=== PATIENT | female | born 1990 | race Caucasian/White ===

== ENCOUNTER 2016-06-02 11:35 | Outpatient (CLI) | payer MEDICAID | END 2016-06-02 12:33 | disposition home or self-care (01) | LOC: LC 11:35 | PROVIDERS: ATTEND Obstetrics & Gynecology | PROC: 4A1HXCZ Monitoring of Products of Conception, Cardiac Rate, External Approach (ICD-10-PCS; principal; 2016-06-02) | DX: Z34.93 Encounter for supervision of normal pregnancy, unspecified, third trimester (principal); Z36 Encounter for antenatal screening of mother; Z3A.37 37 weeks gestation of pregnancy | CPT/HCPCS: 59025 ==

== ENCOUNTER 2016-06-04 12:37 | Outpatient (CLI) | payer MEDICAID ==
--- NOTE | 2016-06-04 13:53 | Non Stress Test Report ---
Non Stress Test Datetime Report Generated by CPN: 06/04/2016 13:53 DEMOGRAPHIC EGA NST: 37.2 EGA NST: 37.0 INDICATION Indication for Study: Ordered by Provider; Other Indication for Study: Ordered by Provider Indication for Study (NST) Other: Repeat NST on subutex Indication for Study (NST) Other: repeat NST 37 weeks Subutex use MONITORING Monitor Explained: Monitor Explained; Test Explained; Patient Verbalized Understanding Monitor Explained: Monitor Explained Time on Monitor: 06/04/2016 12:57 Time on Monitor: 06/02/2016 11:52 Time off Monitor: 06/04/2016 13:40 NST Duration: 43 NST INTERVENTIONS NST Interventions: PO Hydration NST Interventions: PO Hydration; Reposition Patient Physician Notified NST: H. Holland, CNM BABY A: [id number] BABY A Movement : Present Movement : Present Contraction Frequency : 0 FHR Baseline : 135 Accelerations : 15X15 Accelerations : 15X15 Decelerations : None Variability : Moderate 6-25bpm Variability : Moderate 6-25bpm NST Review: Meets Criteria for Reactive NST NST Review: Meets Criteria for Reactive NST NST Review and Verified By : Nichole Casillas RN NST Review and Verified By : Fani Gabriel RN NST Results: Reactive NST REPORT Report Trigger: Send Report
== END 2016-06-04 13:43 | disposition home or self-care (01) ==
LOC: LC 12:37
PROVIDERS: ATTEND Obstetrics & Gynecology
PROC: 4A1HXCZ Monitoring of Products of Conception, Cardiac Rate, External Approach (ICD-10-PCS; principal; 2016-06-04)
DX: Z34.93 Encounter for supervision of normal pregnancy, unspecified, third trimester (principal); Z36 Encounter for antenatal screening of mother; Z3A.37 37 weeks gestation of pregnancy
CPT/HCPCS: 59025

== ENCOUNTER 2016-06-08 16:05 | Outpatient (CLI) | payer MEDICAID ==
[2016-06-08 16:52] LABS: APPEARANCE,URINE CLEAR; BILIRUBIN,URINE NEGATIVE (NEGATIVE); GLUCOSE, URINE NEGATIVE (NEGATIVE); KETONES,URINE NEGATIVE (NEGATIVE); LEUKOCYTE ESTERASE,URINE NEGATIVE (NEGATIVE); NITRITE,URINE NEGATIVE (NEGATIVE); PROTEIN,URINE NEGATIVE (NEGATIVE); URINE SPECIFIC GRAVITY 1.005; UROBILINOGEN,URINE NEGATIVE mg/dL (<2.0)
[2016-06-08 17:09] LABS: URINE BARBITURATES SCREEN NEGATIVE; URINE METHADONE SCREEN NEGATIVE; URINE OPIATES LOW NEGATIVE; URINE PHENCYCLIDINE SCREEN NEGATIVE
[2016-06-08 17:39] LABS: ABSOLUTE LYMPHOCYTES (AUTO) 0.8 10^3/uL (0.5-4.7); ABSOLUTE MONOCYTES (AUTO) 0.2 10^3/uL (0.1-1.4); ABSOLUTE NEUT (AUTO) 12.3 10^3/uL (1.7-8.2); BASOPHILS % (AUTO) 0.3 % (0-2); HEMATOCRIT 37.5 % (36.0-47.0); HEMOGLOBIN 12.9 g/dL (12.0-15.5); HGB HCT DIFFERENCE 1.2; LYMPHOCYTES % (AUTO) 5.8 % (13-45); MEAN CORPUSCULAR HEMOGLOBIN 31.5 pg (27.0-33.4); MEAN CORPUSCULAR HGB CONC 34.4 g/dL (32.0-36.0); MEAN CORPUSCULAR VOLUME 92 fl (80-97); MONOCYTES % (AUTO) 1.7 % (3-13); RED BLOOD COUNT 4.09 10^6/uL (3.72-5.28); RED CELL DISTRIBUTION WIDTH 13.7 % (11.5-14.0); SEGMENTED NEUTROPHILS % (AUTO) 92.2 % (42-78); WHITE BLOOD COUNT 13.4 10^3/uL (4.0-10.5)
[2016-06-08 17:52] LABS: ALANINE AMINOTRANSFERASE 24 U/L (9-52); ALBUMIN 3.8 g/dL (3.5-5.0); ALKALINE PHOSPHATASE 112 U/L (38-126); ANION GAP 13 (5-19); ASPARTATE AMINO TRANSFERASE 23 U/L (14-36); BILIRUBIN,DIRECT 0.2 mg/dL (0.0-0.4); BILIRUBIN,TOTAL 0.3 mg/dL (0.2-1.3); BLOOD UREA NITROGEN 9 mg/dL (7-20); CALCIUM 9.8 mg/dL (8.4-10.2); CARBON DIOXIDE 21 mmol/L (22-30); CHLORIDE 104 mmol/L (98-107); CREATININE RESULT 0.66 mg/dL (0.52-1.25); GLUCOSE 108 mg/dL (75-110); LDH 454 U/L (313-618); SODIUM 137.9 mmol/L (137-145); TOTAL PROTEIN 6.3 g/dL (6.3-8.2); URIC ACID 5.5 mg/dL (2.5-6.2)
--- NOTE | 2016-06-14 12:53 | L&D General Admission ---
General Admit Datetime Report Generated by CPN: 06/14/2016 12:53 INFORMATION Patient Age: 26 (06/02/2016 11:36:QS system process) EDC: 06/23/2016 00:00 (06/02/2016 11:53:LILIYA Pineda) : 2 (06/02/2016 11:53:Elsie Scott RN) Para: 0 (06/02/2016 11:53:Elsie Scott RN) Term: 0 (06/02/2016 11:53:Elsie Scott RN) : 0 (06/02/2016 11:53:Elsie Scott RN) Spontaneous Abortions: 1 (06/02/2016 11:53:Elsie Scott RN) Induced Abortions: 0 (06/02/2016 11:53:Elsie Scott RN) Livin (06/02/2016 11:53:Elsie Scott RN) Cesareans: 0 (06/02/2016 11:53:Elsie Scott RN) VBACs: 0 (06/02/2016 11:53:Elsie Scott RN) Ectopic: 0 (06/02/2016 11:53:Elsie Scott RN) Multiple Births: 0 (06/02/2016 11:53:Elsie Scott RN) Baby, Number in Womb: 0 (06/02/2016 11:53:Elsie Scott RN) CARE [facility] Exploration [facility] (06/02/2016 11:53:Elsie Scott RN) Month of 1st Visit: November 2015 (06/02/2016 11:53:Elsie Scott RN) Adequate Care: Yes (06/02/2016 11:53:Elsie Scott RN) Height (in): 63 (06/08/2016 16:31:QS system process) Height (in): 63 (06/04/2016 13:41:QS system process) Height (in): 63 (06/04/2016 12:52:QS system process) Height (in): 63 (06/02/2016 12:31:QS system process) ALLERGIES Medication Allergy: No (06/02/2016 11:53:Elsie Scott RN) Medication Allergies: Penicillins (06/02/2016) (06/02/2016 12:31:QS system process) Medication Allergies: Penicillins (07/04/2011) (06/02/2016 11:36:QS system process) Latex Allergy: No Latex Allergies (06/02/2016 11:53:Elsie Scott RN) Food Allergies: None (06/02/2016 11:53:Elsie Scott RN) Environmental Allergies: None (06/02/2016 11:53:Elsie Scott RN) COMMUNICATION Primary Language: Lithuanian (06/02/2016 11:53:Elsie Scott RN) Medical Tx Preferred Language: Lithuanian (06/02/2016 11:53:Elsie Scott RN) DEMOGRAPHICS Address: [facility] [place] [address] (06/02/2016 11:36:QS system process) Zipcode: [address] (06/02/2016 11:36:QS system process) Home (06/02/2016 11:36:QS system process) SSN: [id number] (06/02/2016 11:36:QS system process) Next of Kin Name: MIL BALDWIN (06/02/2016 11:36:QS system process) Next of Kin (06/02/2016 11:36:QS system process) Next of Kin Relationship: MO (06/02/2016 11:36:QS system process) Date of : 1990 (06/02/2016 11:36:QS system process) Marital Status: Single (06/02/2016 11:36:QS system process) Sex: Female (06/02/2016 11:36:QS system process) Race: (06/02/2016 11:36:QS system process) Ethnicity: Non- or (06/02/2016 11:36:QS system process) Hindu: None (06/02/2016 11:36:QS system process) DRUG AND ALCOHOL USE Alcohol: No (06/02/2016 11:53:Elsie Scott RN) Cigarettes: Current Everyday Smoker. [id number] (06/02/2016 11:53:Elsie Scott RN) Average Cigarettes Smoked: 5 - 10 per day (06/02/2016 11:53:Elsie Scott RN) Advised to Stop Smoking: Yes (06/02/2016 11:53:Elsie Scott RN) Marijuana: No (06/02/2016 11:53:Elsie Scott RN) Cocaine: No (06/02/2016 11:53:Elsie Scott RN) Other Illicit Drugs: No (06/02/2016 11:53:ANDREW Silverio VACCINE HISTORY Influenza Vaccine: Yes (06/02/2016 11:53:Elsie Scott RN) Pneumococcal Vaccine: No (06/02/2016 11:53:Elsie Scott RN) Tetanus Vaccine: Yes (06/02/2016 11:53:Elsie Scott RN) Tdap Vaccine: Yes (06/02/2016 11:53:Elsie Scott RN) Hepatitis B Vaccine: Uncertain (06/02/2016 11:53:Elsie Scott RN) Optical Worker: [facility] (06/02/2016 11:53:Elsie Scott RN) Feeding Preference: Breast (06/02/2016 11:53:Elsie Scott RN) Benefit of Breast Feed Discussed: Yes (06/02/2016 11:53:Elsie Scott RN) Circumcision: N/A (06/02/2016 11:53:Elsie Scott RN) Classes Attended: No (06/02/2016 11:53:Elsie Scott RN) Tubal Ligation: No (06/02/2016 11:53:Elsie Scott RN) Tubal Authorization Signed: N/A (06/02/2016 11:53:Elsie Scott RN) Consent: N/A (06/02/2016 11:53:Elsie Scott RN) Consent Signed: N/A (06/02/2016 11:53:Elsie Scott RN) Pain Management Plans: Epidural (06/02/2016 11:53:Elsie Scott RN) Plans for Labor and Delivery: None (06/02/2016 11:53:Elsie Scott RN) Support Person: Adarsh Johnson (06/02/2016 11:53:Elsie Scott RN) Support Person Relationship: Significant Other (06/02/2016 11:53:Elsie Scott RN) Cultural/Spritual Practice: No (06/02/2016 11:53:Elsie Scott RN) Spir/Cult Dietary Needs: No (06/02/2016 11:53:Elsie Scott RN) LIVING SITUATION/DISCHARGE PLAN Living Arrangements: House (06/02/2016 11:53:Elsie Scott RN) Adequate Access to:: Electric; Heat; Refrigeration; Plumbing/Running water; Phone; Transportation (06/02/2016 11:53:Elsie Scott RN) WIC Program: No (06/02/2016 11:53:Elsie Scott RN) Discharge Signal Tower Director Person: Adarsh Johnson (06/02/2016 11:53:Elsie Scott RN) Person to Help after Discharge: Adarsh Johnson (06/02/2016 11:53:Elsie Scott RN) Currently Using Commun Resources: Yes (06/02/2016 11:53:Elsie Scott RN) Specify Current Resource Used: Medicaid (06/02/2016 11:53:Elsie Scott RN) Outside Agency/Charge Account Identification Clerk: Yes (06/02/2016 11:53:Elsie Scott RN) Specify Agency/ Charge Account Identification Clerk: unsure (06/02/2016 11:53:Elsie Scott RN) Car Seat for Discharge: Yes (06/02/2016 11:53:Elsie Scott RN) Adoption Requested: No (06/02/2016 11:53:Elsie Scott RN) Pt Contact w/infant Post : N/A (06/02/2016 11:53:Elsie Scott RN) LABS Hemoglobin: 12.9 (06/08/2016 17:00:QS system process) Hematocrit: 37.5 (06/08/2016 17:00:QS system process) MCV: 92 (06/08/2016 17:00:QS system process) OB/PREVIOUS HISTORY Current Procedures: Ultrasound; NST (06/02/2016 11:53:Elsie Scott RN) History of Previous : No (06/02/2016 11:53:Elsie Scott RN) History of Gestational Diabetes: No (06/02/2016 11:53:Elsie Scott RN) History of PIH: No (06/02/2016 11:53:Elsie Scott RN) History of Incompetent Cervix: No (06/02/2016 11:53:Elsie Scott RN) History of Placenta Previa/Abrup: No (06/02/2016 11:53:Elsie Scott RN) History of Macrosomia: No (06/02/2016 11:53:Elsie Scott RN) History of IUGR: No (06/02/2016 11:53:Elsie Scott RN) History of Hemorrhage: No (06/02/2016 11:53:Elsie Scott RN) History of Loss/Stillborn: No (06/02/2016 11:53:Elsie Scott RN) History of : No (06/02/2016 11:53:Elsie Scott RN) History of D (Rh) Sensitization: No (06/02/2016 11:53:Elsie Scott RN) History Recurrent Loss/Stillborn: No (06/02/2016 11:53:Elsie cSott RN) History Depression/PP Depression: No (06/02/2016 11:53:Elsie Scott RN) History of Uterine Anomaly/ANN MARIE: No (06/02/2016 11:53:Elsie Scott RN) History of Infertility: No (06/02/2016 11:53:Elsie Scott RN) History of ART Treatment: No (06/02/2016 11:53:Elsie Scott RN) History of ANN MARIE: No (06/02/2016 11:53:Elsie Scott RN) Comments Obstetrical History: G1 - SAB at 6 wks (2008) G2 - current - on subutex (06/02/2016 11:53:Elsie Scott RN) MEDICAL HISTORY Med Hx Diabetes: No (06/02/2016 11:53:Elsie Scott RN) Med Hx Hypertension: No (06/02/2016 11:53:Elsie Scott RN) Med Hx Heart Disease: No (06/02/2016 11:53:Elsie Scott RN) Med Hx Autoimmune Disorder: No (06/02/2016 11:53:Elsie Scott RN) Med Hx Kidney Disease/UTI: No (06/02/2016 11:53:Elsie Scott RN) Med Hx Neurologic/Epilepsy: No (06/02/2016 11:53:Elsie Scott RN) Med Hx Psychiatric Disorders: No (06/02/2016 11:53:Elsie Scott RN) Med Hx Hepatitis/Liver Disease: No (06/02/2016 11:53:Elsie Scott RN) Med Hx Varicosities/Phlebitis: No (06/02/2016 11:53:Elsie Scott RN) Med Hx Thyroid Dysfunction: No (06/02/2016 11:53:Elsie Scott RN) Med Hx Trauma/Violence: No (06/02/2016 11:53:Elsie Scott RN) Med Hx Blood Transfusion: No (06/02/2016 11:53:Elsie Scott RN) Med Hx Pulmonary (Asthma,TB): No (06/02/2016 11:53:Elsie Scott RN) Med Hx Breast: No (06/02/2016 11:53:Elsie Scott RN) Med Hx GUEST SERVICES ASSOCIATE Surgery: No (06/02/2016 11:53:Elsie Scott RN) Med Hx Hospitalization/Surgery: No (06/02/2016 11:53:Elsie Scott RN) Med Hx Anesthetic Complications: No (06/02/2016 11:53:Elsie Scott RN) Med Hx Abnormal Pap Smear: No (06/02/2016 11:53:Elsie Scott RN) Other Medical Diseases: No (06/02/2016 11:53:Elsie Scott RN) Med Hx Significant Family Hx: No (06/02/2016 11:53:Elsie Scott RN) INFECTIOUS HISTORY Inf Hx Gonorrhea: No (06/02/2016 11:53:Elsie Scott RN) Inf Hx Chlamydia: No (06/02/2016 11:53:Elsie Scott RN) Inf Hx Syphilis: No (06/02/2016 11:53:Elsie Scott RN) Inf Hx HIV/AIDS: No (06/02/2016 11:53:Elsie Scott RN) Inf Hx Human Papilloma Virus: No (06/02/2016 11:53:Elsie Scott RN) Inf Hx Pt/Partner Genital Herpes: No (06/02/2016 11:53:Elsie Scott RN) Inf Hx Tuberculosis/Exposure: No (06/02/2016 11:53:Elsie Scott RN) Inf Hx Hepatitis B,C: No (06/02/2016 11:53:Elsie Scott RN) Inf Hx Rash or Viral Illness: No (06/02/2016 11:53:Elsie Scott RN) GENETIC HISTORY Gen Hx Age >=35 at SARA: No (06/02/2016 11:53:Elsie Scott RN) Gen Hx Thalassemia: No (06/02/2016 11:53:Elsie Scott RN) Gen Hx Congenital Heart Defect: No (06/02/2016 11:53:Elsie Scott RN) Gen Hx Neural Tube Defect: No (06/02/2016 11:53:Elsie Scott RN) Gen Hx Down's Syndrome: No (06/02/2016 11:53:Elsie Scott RN) Gen Hx Cristian-Sachs: No (06/02/2016 11:53:Elsie Scott RN) Gen Hx Sandra: No (06/02/2016 11:53:Elsie Scott RN) Gen Hx Familial Dysautonomia: No (06/02/2016 11:53:Elsie Scott RN) Gen Hx Sickle Cell Disease/Trait: No (06/02/2016 11:53:Elsie Scott RN) Gen Hx Hemophilia/Blood Disorder: No (06/02/2016 11:53:Elsie Scott RN) Gen Hx Muscular Dystrophy: No (06/02/2016 11:53:Elsie Scott RN) Gen Hx Cystic Fibrosis: No (06/02/2016 11:53:Elsie Scott RN) Gen Hx Huntingtons Chorea: No (06/02/2016 11:53:Elsie Scott RN) Gen Hx Mental Retardation/Autism: No (06/02/2016 11:53:Elsie Scott RN) Gen Hx Tested for Fragile X: No (06/02/2016 11:53:Elsie Scott RN) Gen Hx Other Inher/Chromosomal: No (06/02/2016 11:53:Elsie Scott RN) Gen Hx Maternal Metabolic DO: No (06/02/2016 11:53:Elsie Scott RN) Gen Hx Pt Father or FOB Defect: No (06/02/2016 11:53:Elsie Scott RN) Gen Hx Other Genetic History: No (06/02/2016 11:53:Elsie Scott RN) Gen Hx Drugs/Meds since LMP: No (06/02/2016 11:53:Elsie Scott RN)
--- NOTE | 2016-06-14 12:53 | Antepartum Discharge Summary ---
Antepartum DC Datetime Report Generated by CPN: 06/14/2016 12:53 Diet: Regular (06/08/2016 18:09:LILIYA Hopkins) Activity: Normal Activity (06/08/2016 18:09:LILIYA Hopkins) Instructions Given To: Patient (06/08/2016 18:09:LILIYA Hopkins) Instructions Understood: Patient Verbalized Understanding (06/08/2016 18:09:LILIYA Hopkins) Referrals: None (06/08/2016 18:09:LILIYA Hopkins) Educational Materials- Other: Pre-E (06/08/2016 18:09:LILIYA Hopkins) Discharged AMA: No (06/08/2016 18:09:LILIYA Hopkins) Discharge Date/Time: 06/08/2016 18:13 (06/08/2016 18:09:LILIYA Hopkins) Discharged To: Home (06/08/2016 18:09:LILIYA Hopkins) Discharge Provider Name: Dr. Flores (06/08/2016 18:09:LILIYA Hopkins) Accompanied By: N/A (06/08/2016 18:09:LILIYA Hopkins) Discharge Method: Ambulatory (06/08/2016 18:09:LILIYA Hopkins) Condition: Stable (06/08/2016 18:09:LILIYA Hopkins) Follow Up With: [facility] (06/08/2016 18:09:LILIYA Hopkins) Follow Up On: As Scheduled (06/08/2016 18:09:LILIYA Hopkins) Follow Up Phone Number: [facility] - (06/08/2016 18:09:LILIYA Hopkins) Comments: Pt physically left L_D ambulatory in stable condition with d/c instructions and water jug in hand and no complaints or needs at this time. (06/08/2016 18:09:LILIYA Hopkins)
--- NOTE | 2016-06-14 12:54 | L&D Flow Sheet ---
LD Flowsheet Datetime Report Generated by CPN: 06/14/2016 12:53 Datetime: 06/08/2016 18:02 Comments: Monitors removed from abdomen , pt up to RR to change clothes for D/C home with F/U at office. (Selinidalia Bishop, RNC) Datetime: 06/08/2016 18:01 NBP Sys/Ashley/Mean (mmHg): 122 (QS system process) : 61 (QS system process) : 83 (QS system process) Pulse: 90 (QS system process) LaborFlag: Antepartum (QS system process) Datetime: 06/08/2016 18:00 Monitor Mode: External; Palpation (Selin Dario, RNC) Frequency (min): 2.5-4 (Selin Dario, RNC) Quality: Mild (Selin Dario, RNC) Duration (sec): 60-90 (Selin Dario, RNC) Duration Criteria: Less than Two 120 Second Contractions (Selin Dario, RNC) Pattern: Normal: <= 5 Contractions in 10 Minutes (Selin Dario, RNC) Resting Tone (Palpate): Relaxed (Selin Dario, RNC) Monitor Mode: External US (Selin Dario, RNC) FHR Baseline Rate : 145 (Selin Dario, RNC) Variability: Moderate 6-25 bpm (Selin Dario, RNC) Accelerations: Prolonged (Selin Dario, RNC) Decelerations: None (Selin Dario, RNC) Datetime: 06/08/2016 17:44 NBP Sys/Ashley/Mean (mmHg): 123 (QS system process) : 61 (QS system process) : 86 (QS system process) Pulse: 95 (QS system process) LaborFlag: Antepartum (QS system process) Datetime: 06/08/2016 17:30 NBP Sys/Ashley/Mean (mmHg): 123 (QS system process) : 57 (QS system process) : 82 (QS system process) Pulse: 92 (QS system process) Monitor Mode: External (Selin Dario, RNC) Frequency (min): x3 (Selin Dario, RNC) Duration (sec): 60-120 (Selin Dario, RNC) Pattern: Normal: <= 5 Contractions in 10 Minutes (Selin Dario, RNC) Monitor Mode: External US (Selin Dario, RNC) FHR Baseline Rate : 145 (Selin Dario, RNC) Variability: Moderate 6-25 bpm (Selin Dario, RNC) Accelerations: Prolonged (Selin Dario, RNC) Decelerations: None (Selin Dario, RNC) LaborFlag: Antepartum (QS system process) Datetime: 06/08/2016 17:16 NBP Sys/Ashley/Mean (mmHg): 123 (QS system process) : 59 (QS system process) : 82 (QS system process) Pulse: 99 (QS system process) LaborFlag: Antepartum (QS system process) Datetime: 06/08/2016 17:00 NBP Sys/Ashley/Mean (mmHg): 127 (QS system process) : 60 (QS system process) : 86 (QS system process) Pulse: 102 (QS system process) Monitor Mode: External (Selin Dario, RNC) Frequency (min): x0 (Selin Dario, RNC) Resting Tone (Palpate): Relaxed (Selin Dario, RNC) Monitor Mode: External US (Selin Dario, RNC) FHR Baseline Rate : 135 (Selin Dario, RNC) Variability: Moderate 6-25 bpm (Selin Dario, RNC) Accelerations: 15X15 (Selin Dario, RNC) Decelerations: None (Selin Dario, RNC) LaborFlag: Antepartum (QS system process) Datetime: 06/08/2016 16:41 NBP Sys/Ashley/Mean (mmHg): 130 (QS system process) : 66 (QS system process) : 92 (QS system process) Pulse: 104 (HARVEY system process) Respirations: 17 (LILIYA Hopkins) Temperature (F): 98.0 (LILIYA Hopkins) Temperature (C): 36.7 (QS system process) Temperature Route: Oral (LILIYA Hopkins) Level of Consciousness: Fully Conscious (LILIYA Hopkins) DTR's/Clonus: DTRs 2+; No Clonus (LILIYA Hopkins) Headache: Denies (LILIYA Hopkins) Breath Sounds, Left: Clear and Equal (LILIYA Hopkins) Breath Sounds, Right: Clear and Equal (LILIYA Hopkins) Nausea/Vomiting: Denies (LILIYA Hopkins) RUQ Epigastric Pain: Denies (LILIYA Hopkins) Instructional Method: Verbal (LILIYA Hopkins) Plan of Care: Plan of Care Discussed (LILIYA Hopkins) Unit Routine: [place] to Room (LILIYA Hopkins) LaborFlag: Antepartum (HARVEY system process)
--- NOTE | 2016-06-14 12:55 | L&D Discharge Summary ---
OB Discharge Summary Datetime Report Generated by CPN: 06/14/2016 12:54 DISCHARGE DIAGNOSIS Diagnosis/Symptoms: Hypertension Evaluation Diagnoses/Symptoms Other: IUP at 37.6 weeks, normotensive, labs WNL Gestation: 37.6 Number of Babies in Womb: 0 Parity: 0 DIET/ACTIVITY/RESTRICTIONS Diet: Regular Activity: Normal Activity TEACHING/INSTRUCTIONS/REFERRALS Instructions Given To: Patient Instructions Understood: Patient Verbalized Understanding Referrals: None Educational Materials- Other: Pre-E DISCHARGE INFORMATION Discharged AMA: No Discharge Date/Time: 06/08/2016 18:13 Discharged To: Home Discharge Provider Name: Dr. Flores Accompanied By: N/A Discharge Method: Ambulatory Condition: Stable FOLLOW UP INFORMATION Follow Up With: [facility] Follow Up On: As Scheduled Follow Up Phone Number: [facility] - Comments: Pt physically left L_D ambulatory in stable condition with d/c instructions and water jug in hand and no complaints or needs at this time.
--- NOTE | 2016-06-14 12:55 | Non Stress Test Report ---
Non Stress Test Datetime Report Generated by CPN: 06/14/2016 12:54 EGA NST: 37.6 Indication for Study: Ordered by Provider Indication for Study (NST) Other: LC for Pre-E Monitor Explained: Monitor Explained; Test Explained; Patient Verbalized Understanding Time on Monitor: 06/08/2016 16:45 Time off Monitor: 06/08/2016 17:15 NST Duration: 30 NST Interventions: PO Hydration Movement : Present Contraction Frequency : Irr FHR Baseline : 135 Accelerations : 15X15 Decelerations : None Variability : Moderate 6-25bpm NST Review: Meets Criteria for Reactive NST NST Results: Reactive
== END 2016-06-08 18:13 | disposition home or self-care (01) ==
LOC: LC 16:05
PROVIDERS: ATTEND Obstetrics & Gynecology
PROC: 4A1HXCZ Monitoring of Products of Conception, Cardiac Rate, External Approach (ICD-10-PCS; principal; 2016-06-08)
DX: O16.3 Unspecified maternal hypertension, third trimester (principal); Z3A.37 37 weeks gestation of pregnancy
CPT/HCPCS: 36415; 59025; 80053; 80307; 81001; 83615; 84550; 85025

== ENCOUNTER 2016-06-17 04:12 | Outpatient (CLI) | payer MEDICAID ==
[2016-06-17] MEDS ORDERED: HYDROXYZINE PAMOATE 50 MG CAPSULE ONE (04:43)
[2016-06-17 04:46] LABS: APPEARANCE,URINE CLEAR; BILIRUBIN,URINE NEGATIVE (NEGATIVE); GLUCOSE, URINE NEGATIVE (NEGATIVE); KETONES,URINE NEGATIVE (NEGATIVE); LEUKOCYTE ESTERASE,URINE NEGATIVE (NEGATIVE); NITRITE,URINE NEGATIVE (NEGATIVE); PROTEIN,URINE NEGATIVE (NEGATIVE); URINE SPECIFIC GRAVITY 1.005; UROBILINOGEN,URINE NEGATIVE mg/dL (<2.0)
[2016-06-17] MEDS ORDERED: HYDROXYZINE PAMOATE 50 MG CAPSULE PO ONE (05:00)
[2016-06-17 05:01] LABS: URINE BARBITURATES SCREEN NEGATIVE; URINE METHADONE SCREEN NEGATIVE; URINE OPIATES LOW NEGATIVE; URINE PHENCYCLIDINE SCREEN NEGATIVE
--- NOTE | 2016-06-17 05:48 | Non Stress Test Report ---
Non Stress Test Datetime Report Generated by CPN: 06/17/2016 05:48 DEMOGRAPHIC Test Number: 1 EGA NST: 39.1 EGA NST: 37.6 INDICATION Indication for Study: Ordered by Provider Indication for Study: Ordered by Provider Indication for Study (NST) Other: LC for Pre-E MONITORING Monitor Explained: Monitor Explained; Test Explained; Patient Verbalized Understanding Monitor Explained: Monitor Explained; Test Explained; Patient Verbalized Understanding Time on Monitor: 06/17/2016 04:30 Time on Monitor: 06/08/2016 16:45 Time off Monitor: 06/17/2016 05:41 Time off Monitor: 06/08/2016 17:15 NST Duration: 71 NST Duration: 30 NST INTERVENTIONS NST Interventions: PO Hydration NST Interventions: PO Hydration Physician Notified NST: Mark BABY A: [id number] BABY A Movement : Present Movement : Present Contraction Frequency : 2-6 Contraction Frequency : Irr FHR Baseline : 120 FHR Baseline : 135 Accelerations : 15X15 Accelerations : 15X15 Decelerations : None Decelerations : None Variability : Moderate 6-25bpm Variability : Moderate 6-25bpm NST Review: Meets Criteria for Reactive NST NST Review: Meets Criteria for Reactive NST NST Review and Verified By : Daja Pradhan RN NST Results: Reactive NST REPORT Report Trigger: Send Report
--- NOTE | 2016-06-17 07:59 | L&D Discharge Summary ---
OB Discharge Summary Datetime Report Generated by CPN: 06/17/2016 07:59 DISCHARGE DIAGNOSIS Diagnosis/Symptoms: False Labor Diagnoses/Symptoms Other: IUP at 37.6 weeks, normotensive, labs WNL Treatment/Procedures Other: VIstaril 50 mg PO Gestation: 39.0 Number of Babies in Womb: 0 Parity: 0 DIET/ACTIVITY/RESTRICTIONS Diet: Regular Activity: Normal Activity TEACHING/INSTRUCTIONS/REFERRALS Instructions Given To: Patient Instructions Understood: Patient Verbalized Understanding; Support Person Verbalized Understanding Referrals: None Educational Materials- Other: NST _ Labor process DISCHARGE INFORMATION Discharged AMA: No Discharge Date/Time: 06/08/2016 18:13 Discharged To: Home Discharge Provider Name: Mark Accompanied By: Friend Discharge Method: Ambulatory Condition: Stable FOLLOW UP INFORMATION Follow Up With: [facility] Follow Up On: As Scheduled Follow Up Phone Number: [employer] - Comments: Pt physically left L_D ambulatory in stable condition with d/c instructions and water jug in hand and no complaints or needs at this time.
--- NOTE | 2016-06-17 10:49 | L&D Discharge Summary ---
OB Discharge Summary Datetime Report Generated by CPN: 06/17/2016 10:45 DISCHARGE DIAGNOSIS Diagnosis/Symptoms: False Labor Diagnoses/Symptoms Other: IUP at 37.6 weeks, normotensive, labs WNL Treatment/Procedures Other: VIstaril 50 mg PO Gestation: 39.0 Number of Babies in Womb: 0 Parity: 0 DIET/ACTIVITY/RESTRICTIONS Diet: Regular Activity: Normal Activity TEACHING/INSTRUCTIONS/REFERRALS Instructions Given To: Patient Instructions Understood: Patient Verbalized Understanding; Support Person Verbalized Understanding Referrals: None Educational Materials- Other: NST _ Labor process DISCHARGE INFORMATION Discharged AMA: No Discharge Date/Time: 06/08/2016 18:13 Discharged To: Home Discharge Provider Name: Mark Accompanied By: Friend Discharge Method: Ambulatory Condition: Stable FOLLOW UP INFORMATION Follow Up With: [facility] Follow Up On: As Scheduled Follow Up Phone Number: [facility] - Comments: Pt physically left L_D ambulatory in stable condition with d/c instructions and water jug in hand and no complaints or needs at this time.
--- NOTE | 2016-06-17 10:49 | L&D General Admission ---
General Admit Datetime Report Generated by CPN: 06/17/2016 10:45 INFORMATION Patient Age: 26 (06/02/2016 11:36:QS system process) EDC: 06/23/2016 00:00 (06/02/2016 11:53:LILIYA Pineda) : 2 (06/02/2016 11:53:Elsie Scott RN) Para: 0 (06/02/2016 11:53:Elsie Scott RN) Term: 0 (06/02/2016 11:53:Elsie Scott RN) : 0 (06/02/2016 11:53:Elsie Scott RN) Spontaneous Abortions: 1 (06/02/2016 11:53:Elsie Scott RN) Induced Abortions: 0 (06/02/2016 11:53:Elsie Scott RN) Livin (06/02/2016 11:53:Elsie Scott RN) Cesareans: 0 (06/02/2016 11:53:Elsie Scott RN) VBACs: 0 (06/02/2016 11:53:Elsie Scott RN) Ectopic: 0 (06/02/2016 11:53:Elsie Scott RN) Multiple Births: 0 (06/02/2016 11:53:Elsie Scott RN) Baby, Number in Womb: 0 (06/02/2016 11:53:Elsie Scott RN) [facility] (06/02/2016 11:53:Elsie Scott RN) Month of 1st Visit: November 2015 (06/02/2016 11:53:Elsie Scott RN) Adequate Care: Yes (06/02/2016 11:53:Elsie Scott RN) Height (in): 63 (06/17/2016 04:24:QS system process) Height (in): 63 (06/08/2016 16:31:QS system process) Height (in): 63 (06/04/2016 13:41:QS system process) Height (in): 63 (06/04/2016 12:52:QS system process) Height (in): 63 (06/02/2016 12:31:QS system process) ALLERGIES Medication Allergy: No (06/02/2016 11:53:Elsie Scott RN) Medication Allergies: Penicillins (06/02/2016) (06/02/2016 12:31:QS system process) Medication Allergies: Penicillins (07/04/2011) (06/02/2016 11:36:QS system process) Latex Allergy: No Latex Allergies (06/02/2016 11:53:Elsie Scott RN) Food Allergies: None (06/02/2016 11:53:Elsie Scott RN) Environmental Allergies: None (06/02/2016 11:53:Elsie Scott RN) COMMUNICATION Primary Language: Slovak (06/02/2016 11:53:Elsie Scott RN) Medical Tx Preferred Language: Slovak (06/02/2016 11:53:Elsie Scott RN) DEMOGRAPHICS Address: [address] [place] [id number] (06/02/2016 11:36:QS system process) Zipcode: [address] (06/02/2016 11:36:QS system process) Home (06/02/2016 11:36:QS system process) SSN: [id number] (06/02/2016 11:36:QS system process) Next of Kin Name: MIL BALDWIN (06/02/2016 11:36:QS system process) Next of Kin (06/02/2016 11:36:QS system process) Next of Kin Relationship: MO (06/02/2016 11:36:QS system process) Date of : 1990 (06/02/2016 11:36:QS system process) Marital Status: Single (06/02/2016 11:36:QS system process) Sex: Female (06/02/2016 11:36:QS system process) Race: (06/02/2016 11:36:QS system process) Ethnicity: Non- or (06/02/2016 11:36:QS system process) Mandaeism: None (06/02/2016 11:36:QS system process) DRUG AND ALCOHOL USE Alcohol: No (06/02/2016 11:53:Elsie Scott RN) Cigarettes: Current Everyday Smoker. [id number] (06/02/2016 11:53:Elsie Scott RN) Average Cigarettes Smoked: 5 - 10 per day (06/02/2016 11:53:Elsie Scott RN) Advised to Stop Smoking: Yes (06/02/2016 11:53:Elsie Scott RN) Marijuana: No (06/02/2016 11:53:Elsie Scott RN) Cocaine: No (06/02/2016 11:53:Elsie Scott RN) Other Illicit Drugs: No (06/02/2016 11:53:Elsie Scott RN) VACCINE HISTORY Influenza Vaccine: Yes (06/02/2016 11:53:Elsie Scott RN) Pneumococcal Vaccine: No (06/02/2016 11:53:Elsie Scott RN) Tetanus Vaccine: Yes (06/02/2016 11:53:Elsie Scott RN) Tdap Vaccine: Yes (06/02/2016 11:53:Elsie Scott RN) Hepatitis B Vaccine: Uncertain (06/02/2016 11:53:Elsie Scott RN) Ramp Boss: [facility] (06/02/2016 11:53:Elsie Scott RN) Feeding Preference: Breast (06/02/2016 11:53:Elsie Scott RN) Benefit of Breast Feed Discussed: Yes (06/02/2016 11:53:Elsie Scott RN) Circumcision: N/A (06/02/2016 11:53:Elsie Scott RN) Classes Attended: No (06/02/2016 11:53:Elsie Scott RN) Tubal Ligation: No (06/02/2016 11:53:Elsie Scott RN) Tubal Authorization Signed: N/A (06/02/2016 11:53:Elsie Scott RN) Consent: N/A (06/02/2016 11:53:Elsie Scott RN) Consent Signed: N/A (06/02/2016 11:53:Elsie Scott RN) Pain Management Plans: Epidural (06/02/2016 11:53:Elsie Scott RN) Plans for Labor and Delivery: None (06/02/2016 11:53:Elsie Scott RN) Support Person: Adarsh Johnson (06/02/2016 11:53:Elsie Scott RN) Support Person Relationship: Significant Other (06/02/2016 11:53:Elsie Scott RN) Cultural/Spritual Practice: No (06/02/2016 11:53:Elsie Scott RN) Spir/Cult Dietary Needs: No (06/02/2016 11:53:Elsie Scott RN) LIVING SITUATION/DISCHARGE PLAN Living Arrangements: House (06/02/2016 11:53:Elsie Scott RN) Adequate Access to:: Electric; Heat; Refrigeration; Plumbing/Running water; Phone; Transportation (06/02/2016 11:53:Elsie Scott RN) WIC Program: [facility] (06/02/2016 11:53:Elsie Scott RN) Discharge Dip [place] Person: Adarsh Johnson (06/02/2016 11:53:Elsie Scott RN) Person to Help after Discharge: Adarsh Johnson (06/02/2016 11:53:Elsie Scott RN) Currently Using Commun Resources: Yes (06/02/2016 11:53:Elsie Scott RN) Specify Current Resource Used: Medicaid (06/02/2016 11:53:Elsie Scott RN) Outside Agency/Machine Repairman: Yes (06/02/2016 11:53:Elsie Scott RN) Specify Agency/ Machine Repairman: unsure (06/02/2016 11:53:Elsie Scott RN) Car Seat for Discharge: Yes (06/02/2016 11:53:Elsie Scott RN) Adoption Requested: No (06/02/2016 11:53:Elsie Scott RN) Pt Contact w/ Post : N/A (06/02/2016 11:53:Elsie Scott RN) LABS Blood Type: A Positive (06/02/2016 11:53:Shannon Tidwell RN) Hemoglobin: 12.9 (06/08/2016 17:00:QS system process) Hematocrit: 37.5 (06/08/2016 17:00:QS system process) MCV: 92 (06/08/2016 17:00:QS system process) Group Beta Strep: Negative (06/02/2016 11:53:Shannon Tidwell RN) Gonorrhea: Negative (06/02/2016 11:53:Shannon Tidwell RN) Chlamydia: Negative (06/02/2016 11:53:Shannon Tidwell RN) RPR/VDRL: Nonreactive (06/02/2016 11:53:Shannon Tidwell RN) HIV Exposure Test: Negative (06/02/2016 11:53:Shannon Tidwell RN) Hepatitis B: Negative (06/02/2016 11:53:Shannon Tidwell RN) Rubella: Immune (06/02/2016 11:53:Shannon Tidwell RN) OB/PREVIOUS HISTORY Current Procedures: Ultrasound; NST (06/02/2016 11:53:Elsie Scott RN) History of Previous : No (06/02/2016 11:53:Elsie Scott RN) History of Gestational Diabetes: No (06/02/2016 11:53:Elsie Scott RN) History of PIH: No (06/02/2016 11:53:Elsie Scott RN) History of Incompetent Cervix: No (06/02/2016 11:53:Elsie Scott RN) History of Placenta Previa/Abrup: No (06/02/2016 11:53:Elsie Scott RN) History of Macrosomia: No (06/02/2016 11:53:Elsie Scott RN) History of IUGR: No (06/02/2016 11:53:Elsie Scott RN) History of Hemorrhage: No (06/02/2016 11:53:Elsie Scott RN) History of Loss/Stillborn: No (06/02/2016 11:53:Elsie Scott RN) History of : No (06/02/2016 11:53:Elsie Scott RN) History of D (Rh) Sensitization: No (06/02/2016 11:53:Elsie Scott RN) History Recurrent Loss/Stillborn: No (06/02/2016 11:53:Elsie Scott RN) History Depression/PP Depression: No (06/02/2016 11:53:Elsie Scott RN) History of Uterine Anomaly/ANN MARIE: No (06/02/2016 11:53:Elsie Scott RN) History of Infertility: No (06/02/2016 11:53:Elsie Scott RN) History of ART Treatment: No (06/02/2016 11:53:Elsie Scott RN) History of ANN MARIE: No (06/02/2016 11:53:Elsie Scott RN) Comments Obstetrical History: G1 - SAB at 6 wks (2008) G2 - current - on subutex (06/02/2016 11:53:Elsie Scott RN) MEDICAL HISTORY Med Hx Diabetes: No (06/02/2016 11:53:Elsie Scott RN) Med Hx Hypertension: No (06/02/2016 11:53:Elsie Scott RN) Med Hx Heart Disease: No (06/02/2016 11:53:Elsie Scott RN) Med Hx Autoimmune Disorder: No (06/02/2016 11:53:Elsie Scott RN) Med Hx Kidney Disease/UTI: No (06/02/2016 11:53:Elsie Scott RN) Med Hx Neurologic/Epilepsy: No (06/02/2016 11:53:Elsie Scott RN) Med Hx Psychiatric Disorders: No (06/02/2016 11:53:Elsie Scott RN) Med Hx Hepatitis/Liver Disease: No (06/02/2016 11:53:Elsie Scott RN) Med Hx Varicosities/Phlebitis: No (06/02/2016 11:53:Elsie Scott RN) Med Hx Thyroid Dysfunction: No (06/02/2016 11:53:Elsie Scott RN) Med Hx Trauma/Violence: No (06/02/2016 11:53:Elsie Scott RN) Med Hx Blood Transfusion: No (06/02/2016 11:53:Elsie Scott RN) Med Hx Pulmonary (Asthma,TB): No (06/02/2016 11:53:Elsie Scott RN) Med Hx Breast: No (06/02/2016 11:53:Elsie Scott RN) Med Hx PHYSICAL AERODYNAMICIST Surgery: No (06/02/2016 11:53:Elsie Scott RN) Med Hx Hospitalization/Surgery: No (06/02/2016 11:53:Elsie Scott RN) Med Hx Anesthetic Complications: No (06/02/2016 11:53:Elsie Scott RN) Med Hx Abnormal Pap Smear: No (06/02/2016 11:53:Elsie Scott RN) Other Medical Diseases: No (06/02/2016 11:53:Elsie Scott RN) Med Hx Significant Family Hx: No (06/02/2016 11:53:Elsie Scott RN) INFECTIOUS HISTORY Inf Hx Gonorrhea: No (06/02/2016 11:53:Elsie Scott RN) Inf Hx Chlamydia: No (06/02/2016 11:53:Elsie Scott RN) Inf Hx Syphilis: No (06/02/2016 11:53:Elsie Scott RN) Inf Hx HIV/AIDS: No (06/02/2016 11:53:Elsie Scott RN) Inf Hx Human Papilloma Virus: No (06/02/2016 11:53:Elsie Scott RN) Inf Hx Pt/Partner Genital Herpes: No (06/02/2016 11:53:Elsie Scott RN) Inf Hx Tuberculosis/Exposure: No (06/02/2016 11:53:Elsie Scott RN) Inf Hx Hepatitis B,C: No (06/02/2016 11:53:Elsie Scott RN) Inf Hx Rash or Viral Illness: No (06/02/2016 11:53:Elsie Scott RN) GENETIC HISTORY Gen Hx Age >=35 at SARA: No (06/02/2016 11:53:Elsie Scott RN) Gen Hx Thalassemia: No (06/02/2016 11:53:Elsie Scott RN) Gen Hx Congenital Heart Defect: No (06/02/2016 11:53:Elsie Scott RN) Gen Hx Neural Tube Defect: No (06/02/2016 11:53:Elsie Scott RN) Gen Hx Down's Syndrome: No (06/02/2016 11:53:Elsie Scott RN) Gen Hx Cristian-Sachs: No (06/02/2016 11:53:Elsie Scott RN) Gen Hx Sandra: No (06/02/2016 11:53:Elsie Scott RN) Gen Hx Familial Dysautonomia: No (06/02/2016 11:53:Elsie Scott RN) Gen Hx Sickle Cell Disease/Trait: No (06/02/2016 11:53:Elsie Scott RN) Gen Hx Hemophilia/Blood Disorder: No (06/02/2016 11:53:Elsie Scott RN) Gen Hx Muscular Dystrophy: No (06/02/2016 11:53:Elsie Scott RN) Gen Hx Cystic Fibrosis: No (06/02/2016 11:53:Elsie Scott RN) Gen Hx [place]tons Chorea: No (06/02/2016 11:53:Elsie Scott RN) Gen Hx Mental Retardation/Autism: No (06/02/2016 11:53:Elsie Scott RN) Gen Hx Tested for Fragile X: No (06/02/2016 11:53:Elsie Scott RN) Gen Hx Other Inher/Chromosomal: No (06/02/2016 11:53:Elsie Scott RN) Gen Hx Maternal Metabolic DO: No (06/02/2016 11:53:Elsie Scott RN) Gen Hx Pt Father or FOB Defect: No (06/02/2016 11:53:Elsie Scott RN) Gen Hx Other Genetic History: No (06/02/2016 11:53:Elsie Scott RN) Gen Hx Drugs/Meds since LMP: No (06/02/2016 11:53:Elsie Scott RN)
--- NOTE | 2016-06-17 10:49 | L&D Admission Assessment ---
LD ADM ASMT Datetime Report Generated by CPN: 06/17/2016 10:45 PATIENT ASSESSMENT Assessment Type: Triage (06/17/2016 04:20:Crystal Leivasy, RN) WEIGHT Weight (lb): 176 (06/17/2016 04:24:QS system process) Weight (kg): 80.0 (06/17/2016 04:24:QS system process) BMI: 31.2 (06/17/2016 04:24:QS system process) PAIN Pain Scale: 1 (06/17/2016 04:20:Crystal Leivasy, RN) Pain Presence: Intermittent (06/17/2016 04:20:Crystal Leivasy, RN) Pain Type: Contraction (06/17/2016 04:20:Crystal Leivasy, RN) Pain Location: Abdomen (06/17/2016 04:20:Crystal Leivasy, RN) Pain Goal: 1 (06/17/2016 04:20:Crystal Leivasy, RN) Pain Related to Contraction: Yes (06/17/2016 04:20:Crystal Leivasy, RN) CONTRACTIONS Frequency (min): 3.5-5 (06/17/2016 05:15:Crystal Leivasy, RN) Frequency (min): 2.5-5 (06/17/2016 04:45:Crystal Yaw, RN) Duration (sec): 80-90 (06/17/2016 05:15:Crystal Leivasy, RN) Quality: Moderate (06/17/2016 05:15:Crystal Yaw, RN) Quality: Moderate (06/17/2016 04:45:Crystal Leivasy, RN) Resting Tone [place]: Relaxed (06/17/2016 05:15:Crystal Yaw, RN) Resting Tone [place]: Relaxed (06/17/2016 04:45:Crystal Leivasy, RN) VAGINAL EXAM Dilatation (cm): 1.5 (06/17/2016 05:41:Crystal Yaw, RN) Dilatation (cm): 1.5 (06/17/2016 04:36:Crystal Yaw, RN) Effacement (%): 50 (06/17/2016 05:41:Crystal Yaw, RN) Effacement (%): 50 (06/17/2016 04:36:Crystal Yaw, RN) Station: -3 (06/17/2016 05:41:Crystal Leivasy, RN) Station: -3 (06/17/2016 04:36:Crystal Yaw, RN) Membranes Status: Intact (06/17/2016 04:20:Crystal Leivasy, RN) NEURO Level of Consciousness: Fully Conscious (06/17/2016 04:20:Shannon Tidwell RN) Headache: Denies (06/17/2016 04:20:Shannon Tidwell RN) Dizziness: No (06/17/2016 04:20:Shannon Tidwell RN) Blurred Vision: No (06/17/2016 04:20:Shannon Tidwell RN) Extremity Numbness/Tingling : None (06/17/2016 04:20:Shannon Tidwell RN) Extremity Movement: Full Range of Motion (06/17/2016 04:20:Shannon Johns RN) CARDIOVASCULAR Heart Rhythm: Regular (06/17/2016 04:20:Shannon Tidwell RN) Nailbeds: [place] (06/17/2016 04:20:Shannon Tidwell RN) Capillary Refill: Less than 3 Seconds (06/17/2016 04:20:Shannon Tidwell RN) Lower Extremities Edema: Bilateral Lower Extremities (06/17/2016 04:20:Shannon Tidwell RN) Lower Extremities Edema Degree: Pitting; 1+ (06/17/2016 04:20:Shannon Tidwell RN) Upper Extremities Edema Degree: None (06/17/2016 04:20:Shannon Tidwell RN) Facial Edema: None (06/17/2016 04:20:Shannon Tidwell RN) Amita's Sign Left Leg: Negative (06/17/2016 04:20:Shannon Tidwell RN) Amita's Sign Right Leg: Negative (06/17/2016 04:20:Shannon Tidwell RN) DVT RISK ASSESSMENT DVT Risk Age: Age less than 41 years (06/17/2016 04:20:Crystal Leivasy, RN) DVT Risk BMI: BMI<31 (06/17/2016 04:20:Crystal Leivasy, RN) DVT Risk Surgery: None Applicable (06/17/2016 04:20:Crystal Yaw, RN) DVT Risk Other: None Applicable (06/17/2016 04:20:Crystal Leivasy, RN) DVT Risk Total: 0 (06/17/2016 04:20:QS system process) DVT Risk Text: Low Risk (<10%) No specific measures, early ambulation (06/17/2016 04:20:QS system process) RESPIRATORY Respiratory Effort: Unlabored; Regular Rhythm; Equal Expansion (06/17/2016 04:20:Crystal Yaw, RN) Cough Productivity: None (06/17/2016 04:20:Crystal Leivasy, RN) GASTROINTESTINAL Nausea/Vomiting: Denies (06/17/2016 04:20:Shannon Tidwell RN) Bowel Sounds: Normoactive (06/17/2016 04:20:Crystal Yaw RN) RUQ Epigastric Pain: Denies (06/17/2016 04:20:Shannon Royalergrikki RN) Response to Antacids: Pain Relieved (06/17/2016 04:20:Shannon Royalergrikki RN) Bowel Patterns: Soft, Formed Stool (06/17/2016 04:20:Shannon Tidwell RN) Hemorrhoids: Present (06/17/2016 04:20:Shannon Tidwell RN) Diet Type: Regular diet (06/17/2016 04:20:Crystal Yaw, RN) Last Meal: 06/17/2016 04:00 (06/17/2016 04:20:Crystal Yaw RN) GENITOURINARY Bladder: Nondistended (06/17/2016 04:20:Crystal YawBABS) Urination Burning: No (06/17/2016 04:20:Crystal Yaw RN) CVA Tenderness: No (06/17/2016 04:20:Shannon Tidwell RN) Vaginal Bleeding: None (06/17/2016 04:20:Crystal Leivasy, RN) Vaginal Discharge Amount: None (06/17/2016 04:20:Crystal Leivasy, RN) Vaginal Discharge Color: N/A (06/17/2016 04:20:Crystal Leivasy, RN) Vaginal Discharge Character: None (06/17/2016 04:20:Crystal Yaw, RN) INTEGUMENTARY Skin Color: Normal for Race (06/17/2016 04:20:Crystal Yaw, RN) Skin Temperature: Warm (06/17/2016 04:20:Crystal Leivasy, RN) Skin Moisture: Dry (06/17/2016 04:20:Crystal Leivasy, RN) KHLOE SKIN ASSESSMENT Khloe Scale Sensory Perception: No Impairment- Responds to verbal commands. Has no sensory deficit which would limit ability to feel or voice pain or discomfort (06/17/2016 04:20:Shannon Tidwell RN) Khloe Scale Moisture: Rarely Moist- Skin is usually dry. Linen only requires changing at routine intervals (06/17/2016 04:20:ANDREW Dickerson Scale Activity: Walks Frequently- Walks outside the room at least twice a day and inside room at least every 2 hours during the day. (06/17/2016 04:20:Shannon Tidwell RN) Khloe Scale Mobility: No Limitations- Makes major and frequent changes in position without assistance (06/17/2016 04:20:Shannon Tidwell RN) Khloe Scale Nutrition: Excellent- Eats most of every meal. Never refuses a meal. Usually eats a total of 4 or more servings of meat and dairy products. Occasionally eats between meals. Does not require supplementation (06/17/2016 04:20:Shannon Tidwell RN) SUPPORT Family Support: Family supportive (06/17/2016 04:20:Shannon Tidwell RN) Emotional State: Calm/Relaxed (06/17/2016 04:20:Shannon Tidwell RN) SAFETY Call [place] Within Reach: Yes (06/17/2016 04:20:Shannon Tidwell RN) Side Rails Up: Yes (06/17/2016 04:20:Shannon Tidwell RN) Bed Wheels Locked: Yes (06/17/2016 04:20:Shannon Tidwell RN) Arm Bands Present: Yes (06/17/2016 04:20:Shannon Tidwell RN) Isolation: [place] (06/17/2016 04:20:Shannon Tidwell RN) FALL SCREEN Fall Risk History of Falling: (0) No (06/17/2016 04:20:Shannon Tidwell RN) Fall Risk Secondary Diagnosis: (0) No (06/17/2016 04:20:Shannon Tidwell RN) Fall Risk Ambulatory Aid: (0) None/Bedrest/Wheelchair/Nurse Assist (06/17/2016 04:20:Shannon Tidwell RN) Fall Risk IV Therapy: (0) No (06/17/2016 04:20:Shannon Tidwell RN) Fall Risk Gait: (0) Normal/Bedrest/Immobile (06/17/2016 04:20:Shannon Tidwell RN) Fall Risk Mental Status: (0) Oriented to Own Ability (06/17/2016 04:20:Shannon Tidwell RN) Fall Risk Score: 0 (06/17/2016 04:20:QS system process) Fall Risk Score Definition: No Risk: No action required (06/17/2016 04:20:QS system process) RECENT TRAVEL/INFECTIOUS DISEASE Recent Exp Communicable Disease: No (06/17/2016 04:20:Shannon Tidwell RN) Cough or Fever: No (06/17/2016 04:20:Shannon Tidewll RN) Foreign Travel Past 10 Days: No (06/17/2016 04:20:Shannon Tidwell RN) Open Wounds or Sores: No (06/17/2016 04:20:Shannon Tidwell RN) Prior Antibiotic Resistance Tx: No (06/17/2016 04:20:Shannon Tidwell RN) Cultures Obtained: Not Applicable (06/17/2016 04:20:Shannon Tidwell RN) Isolation Initiated: No (06/17/2016 04:20:Shannon Tidwell RN) Pt/Family Education: Not Applicable (06/17/2016 04:20:Shannon Tidwell RN) BABY A FHR Baseline Rate (bpm) Baby A: 120 (06/17/2016 05:15:Shannon Tidwell RN) FHR Baseline Rate (bpm) Baby A: 120 (06/17/2016 04:45:Shannon Tidwell RN) Variability Baby A: Moderate 6-25 bpm (06/17/2016 05:15:Shannon Tidwell RN) Variability Baby A: Moderate 6-25 bpm (06/17/2016 04:45:Shannon Tidwell RN) Accelerations Baby A: 15X15 (06/17/2016 05:15:Shannon Tidwell RN) Accelerations Baby A: 15X15 (06/17/2016 04:45:Shannon Tidwell RN)
--- NOTE | 2016-06-17 10:49 | Antepartum Discharge Summary ---
Antepartum DC Datetime Report Generated by CPN: 06/17/2016 10:45 DIET/ACTIVITY/RESTRICTIONS Diet: Regular (06/17/2016 05:47:Shannon Tidwell RN) TEACHING/INSTRUCTIONS/REFERRALS Instructions Understood: Patient Verbalized Understanding; Support Person Verbalized Understanding (06/17/2016 05:47:Shannon Tidwell RN) Referrals: None (06/17/2016 05:47:Shannon Tidwell RN) Educational Materials- Other: NST _ Labor process (06/17/2016 05:47:Shannon Tidwell RN) DISCHARGE INFORMATION Discharged AMA: No (06/17/2016 05:47:Shannon Tidwell RN) Discharged To: Home (06/17/2016 05:47:Shannon Tidwell RN) Discharge Provider Name: Mark (06/17/2016 05:47:Shannon Tidwell RN) Accompanied By: Friend (06/17/2016 05:47:Shannon Tidwell RN) Discharge Method: Ambulatory (06/17/2016 05:47:Shannon Tidwell RN) Condition: Stable (06/17/2016 05:47:Shannon Tidwell RN) FOLLOW UP INFORMATION Follow Up With: [facility] (06/17/2016 05:47:Shannon Tidwell RN) Follow Up On: As Scheduled (06/17/2016 05:47:Shannon Tidwell RN) Follow Up Phone Number: [facility] - (06/17/2016 05:47:Shannon Tidwell RN)
--- NOTE | 2016-06-17 10:49 | L&D Flow Sheet ---
LD Flowsheet Datetime Report Generated by CPN: 06/17/2016 10:45 Datetime: 06/17/2016 05:58 Vital Signs Stage of : OB Triage (Crystal [place], RN) Communication Comments: Pt left the unit ambulatory. pt care relinquished. (Crystal Yaw, RN) Datetime: 06/17/2016 05:47 Communication Comments: Educated pt on the labor process and signs and symptoms to look for. Pt Verbalized understanding. (Shannon Tidwell RN) Datetime: 06/17/2016 05:41 Vaginal Exam Dilatation (cm): 1.5 (Shannon Tidwell RN) Effacement (%): 50 (Shannon Tidwell RN) Station: -3 (Shannon Tidwell RN) Exam by: Delphine Tidwell RN (Shannon Tidwell RN) Cervix, Consistency: Soft (Shannon Tidwell RN) Vaginal Exam Comments: No change in SVE. Pt DC. (Crystal Yaw, RN) Datetime: 06/17/2016 05:15 Uterine Activity Monitor Mode: External (Crystal [place], RN) Frequency (min): 3.5-5 (Crystal [place], RN) Quality: Moderate (Crystal Yaw, RN) Duration (sec): 80-90 (Crystal Yaw, RN) Duration Criteria: Less than Two 120 Second Contractions (Crystal [place], RN) Resting Tone (Palpate): Relaxed (Crystal Yaw, RN) Assessment A Monitor Mode: External US (Crystal Yaw, RN) FHR Baseline Rate : 120 (Crystal [place], RN) Variability: Moderate 6-25 bpm (Crystal Yaw, RN) Accelerations: 15X15 (Crystal Yaw, RN) Patient Care Patient Position/Activity: Right Lateral (Crystal [place], RN) Datetime: 06/17/2016 04:57 Medications Antiemetics/Antacids: Vistaril (mg) @ 50 (Crystal [place], RN) Datetime: 06/17/2016 04:45 Temperature (F): 98.6 (Crystal [place], RN) Temperature (C): 37.0 (QS system process) Uterine Activity Monitor Mode: External; Palpation (Crystal [place], RN) Frequency (min): 2.5-5 (Crystal Yaw, RN) Quality: Moderate (Crystal Yaw, RN) Duration Criteria: Less than Two 120 Second Contractions (Crystal Yaw, RN) Resting Tone (Palpate): Relaxed (Crystal Yaw, RN) Assessment A Monitor Mode: External US (Crystal [place], RN) FHR Baseline Rate : 120 (Crystal [place], RN) Variability: Moderate 6-25 bpm (Crystal [place], RN) Accelerations: 15X15 (Crystal Yaw, RN) Patient Care Patient Position/Activity: Right Lateral; Semi-Fowlers (Crystal [place], RN) LaborFlag: OB Triage (QS system process) Datetime: 06/17/2016 04:42 Vital Signs Stage of : OB Triage (Shannon Tidwell RN) I/O Interventions: Popsicle; Clear Liquids Given (Shannon Tidwell RN) Provider Reviewed Strip: Yes (Shannon Tidwell RN) Strip Reviewed by: Delphine Tidwell RN (Shannon Tidwell RN) Communication Communication: RN Reviewed Strip; Provider Orders Received (Shannon Tidwell RN) Provider Notified (Name): Dr. Lucia (Shannon Tidwell RN) Notification Reason: Status Update; Status; Membrane Status; Uterine Activity; Pain (Shannon Tidwell RN) Communication Comments: Reported to Dr. Lucia SVE, pain level and contraction frequency. Reciever orders to give 50 mg vistaril PO and re check. Pt able to DC after hour of being on unit if not changed. (Shannon Tidwell RN) Datetime: 06/17/2016 04:37 NBP Sys/Ashley/Mean (mmHg): 144 (QS system process) : 81 (QS system process) : 107 (QS system process) Pulse: 85 (QS system process) LaborFlag: Antepartum (QS system process) Datetime: 06/17/2016 04:36 Vaginal Exam Dilatation (cm): 1.5 (Shannon Tidwell RN) Effacement (%): 50 (Shannon Tidwell RN) Station: -3 (Shannon Tidwell RN) Exam by: Delphine Tidwell RN (Shannon Tidwell RN) Vaginal Bleeding: None (Shannon Tidwell RN) Cervix, Consistency: Soft (Shannon Tidwell RN) Cervix, Position: Posterior (Shannon Tidwell RN) Datetime: 06/17/2016 04:20 Pain Pain Scale: 1 (Crystal Yaw, RN) Pain Presence: Intermittent (Crystal [place], RN) Pain Type: Contraction (Crystal Yaw, RN) Pain Location: Abdomen (Crystal [place], RN) Pain Goal: 1 (Crystal Yaw, RN) Pain Relief Measures: Comfort Measures (Crystal [place], RN) Pain Coping: Talking Through Contractions (Crystal Yaw, RN) Membrane Status: Intact (Crystal Yaw, RN) Vaginal Bleeding: None (Crystal [place], RN) Maternal Assessment Level of Consciousness: Fully Conscious (Crystal [place], RN) Headache: Denies (Crystal [place], RN) Nausea/Vomiting: Denies (Crystal Yaw, RN) RUQ Epigastric Pain: Denies (Crystal Yaw, RN) LaborFlag: Antepartum (QS system process)
--- NOTE | 2016-06-17 10:49 | L&D Current Admission ---
Current Admit Datetime Report Generated by CPN: 06/17/2016 10:45 ADMISSION INFORMATION Chief Complaint: Contractions (06/17/2016 04:20:Shannon Tidwell RN) Chief Complaint: Repeat NST (06/04/2016 12:55:Elsie Scott RN)
== END 2016-06-17 05:59 | disposition home or self-care (01) ==
LOC: LC 04:12
PROVIDERS: ATTEND Obstetrics & Gynecology
PROC: 4A1HXCZ Monitoring of Products of Conception, Cardiac Rate, External Approach (ICD-10-PCS; principal; 2016-06-17)
DX: O47.1 False labor at or after 37 completed weeks of gestation (principal); Z3A.39 39 weeks gestation of pregnancy
CPT/HCPCS: 59025; 81005; 80307; J3490

== ENCOUNTER 2016-06-18 02:23 | Outpatient (CLI) | payer MEDICAID ==
[2016-06-18 02:48] LABS: APPEARANCE,URINE CLOUDY; BILIRUBIN,URINE NEGATIVE (NEGATIVE); GLUCOSE, URINE NEGATIVE (NEGATIVE); KETONES,URINE 20 mg/dL (NEGATIVE); LEUKOCYTE ESTERASE,URINE SMALL (NEGATIVE); NITRITE,URINE NEGATIVE (NEGATIVE); PROTEIN,URINE NEGATIVE (NEGATIVE); UROBILINOGEN,URINE NEGATIVE mg/dL (<2.0)
[2016-06-18 03:03] LABS: URINE BARBITURATES SCREEN NEGATIVE; URINE METHADONE SCREEN NEGATIVE; URINE OPIATES LOW NEGATIVE; URINE PHENCYCLIDINE SCREEN NEGATIVE
[2016-06-18] MEDS ORDERED: HYDROXYZINE PAMOATE 50 MG CAPSULE PO ONE (04:11)
[2016-06-18] MEDS ORDERED: HYDROXYZINE PAMOATE 50 MG CAPSULE ONE (04:20)
--- NOTE | 2016-06-18 04:49 | Non Stress Test Report ---
Non Stress Test Datetime Report Generated by CPN: 06/18/2016 04:49 DEMOGRAPHIC EGA NST: 39.2 INDICATION Indication for Study: Ordered by Provider MONITORING Monitor Explained: Monitor Explained; Test Explained; Patient Verbalized Understanding Time on Monitor: 06/18/2016 02:35 Time off Monitor: 06/18/2016 03:13 NST Duration: 38 NST INTERVENTIONS NST Interventions: PO Hydration Physician Notified NST: Dr. Briceno BABY A Movement : Present Contraction Frequency : Irregular FHR Baseline : 120 Accelerations : 15X15 Decelerations : None Variability : Moderate 6-25bpm NST Review: Meets Criteria for Reactive NST NST Review and Verified By : Roly Delatorre RN NST Results: Reactive NST REPORT Report Trigger: Send Report
--- NOTE | 2016-06-20 23:40 | L&D Discharge Summary ---
OB Discharge Summary Datetime Report Generated by CPN: 06/20/2016 23:40 DISCHARGE DIAGNOSIS Diagnosis/Symptoms: False Labor Diagnoses/Symptoms Other: IUP at 37.6 weeks, normotensive, labs WNL Treatment/Procedures Other: Vistaril 50mg PO Gestation: 39.2 Number of Babies in Womb: 1 Parity: 0 DIET/ACTIVITY/RESTRICTIONS Diet: Regular Activity: Normal Activity TEACHING/INSTRUCTIONS/REFERRALS Instructions Given To: Patient Instructions Understood: Patient Verbalized Understanding; Support Person Verbalized Understanding Referrals: None Educational Materials- Other: Kick Counts Term DISCHARGE INFORMATION Discharged AMA: No Discharge Date/Time: 06/18/2016 04:38 Discharged To: Home Discharge Provider Name: Dr. Briceno Accompanied By: Friend Discharge Method: Wheelchair Condition: Stable FOLLOW UP INFORMATION Follow Up With: [facility] Follow Up On: As Scheduled Follow Up Phone Number: [facility] - Comments: Pt physically left L_D ambulatory in stable condition with d/c instructions and water jug in hand and no complaints or needs at this time.
== END 2016-06-18 04:38 | disposition home or self-care (01) ==
LOC: LC 02:23
PROVIDERS: ATTEND Obstetrics & Gynecology
PROC: 4A1HXCZ Monitoring of Products of Conception, Cardiac Rate, External Approach (ICD-10-PCS; principal; 2016-06-18)
DX: O47.1 False labor at or after 37 completed weeks of gestation (principal); Z3A.39 39 weeks gestation of pregnancy
CPT/HCPCS: 59025; 81005; 80307; J3490

== ENCOUNTER 2016-06-18 09:43 | Inpatient (IN) | payer MEDICAID ==
[2016-06-18 10:31] LABS: APPEARANCE,URINE SLIGHTLY-CLOUDY; BILIRUBIN,URINE NEGATIVE (NEGATIVE); GLUCOSE, URINE NEGATIVE (NEGATIVE); KETONES,URINE 80 mg/dL (NEGATIVE); LEUKOCYTE ESTERASE,URINE NEGATIVE (NEGATIVE); NITRITE,URINE NEGATIVE (NEGATIVE); PROTEIN,URINE 30 mg/dL (NEGATIVE); URINE SPECIFIC GRAVITY 1.012; UROBILINOGEN,URINE NEGATIVE mg/dL (<2.0)
[2016-06-18 10:52] LABS: URINE BARBITURATES SCREEN NEGATIVE; URINE METHADONE SCREEN NEGATIVE; URINE OPIATES LOW NEGATIVE; URINE PHENCYCLIDINE SCREEN NEGATIVE
[2016-06-18] MEDS ORDERED: MISOPROSTOL 0.2 MG TABLET ONE (11:17)
[2016-06-18] MEDS ORDERED: BUPIVACAINE HCL 0.25 % INJ/PF (2.5 MG/1 ML) 30 ML VIAL ONE (11:18)
[2016-06-18] MEDS ORDERED: OXYTOCIN/NORMAL SALINE 20 UNIT/1,000 ML RTUINJ ONE (11:18)
[2016-06-18] MEDS ORDERED: EPHEDRINE SULFATE INJ 50 MG/1 ML AMPULE ONE (11:18)
[2016-06-18] MEDS ORDERED: LIDOCAINE 1% INJ-PF (10 MG/ML) 30 ML SDV ONE (11:18)
[2016-06-18] MEDS ORDERED: FENTANYL/BUPIVACAINE/NS/PF 200 MCG/100 ML RTUINJ EPI ONE (11:18)
[2016-06-18 11:22] LABS: HEMATOCRIT 38.8 % (36.0-47.0); HEMOGLOBIN 13.5 g/dL (12.0-15.5); HGB HCT DIFFERENCE 1.7; MEAN CORPUSCULAR HEMOGLOBIN 31.5 pg (27.0-33.4); MEAN CORPUSCULAR HGB CONC 34.8 g/dL (32.0-36.0); MEAN CORPUSCULAR VOLUME 91 fl (80-97); RED BLOOD COUNT 4.28 10^6/uL (3.72-5.28); RED CELL DISTRIBUTION WIDTH 13.9 % (11.5-14.0); WHITE BLOOD COUNT 18.4 10^3/uL (4.0-10.5)
[2016-06-18 11:43] LABS: BASOPHILS % (MANUAL) 0 % (0-2); EOSINOPHILS % (MANUAL) 0 % (0-6); LYMPHOCYTES % (MANUAL) 9 % (13-45); TOTAL CELLS COUNTED 100
[2016-06-18 11:46] LABS: RBC MORPHOLOGY COMMENT NORMO-CYTIC/CHROMIC; TOXIC GRANULATION SLIGHT
[2016-06-18] MEDS ORDERED: PROMETHAZINE HCL INJ 25 MG/1 ML VIAL IV PRN (13:25)
[2016-06-18] MEDS ORDERED: DIPH/PERTUSS(ACELL)/TETANUS VAC/PF 0.5 ML SYR (>=10YO) IM PRN (13:25)
[2016-06-18] MEDS ORDERED: MEASLES,MUMPS&RUBELLA VACC/PF 0.5 ML VIAL SUBCUT PRN (13:25)
[2016-06-18] MEDS ORDERED: MAGNESIUM HYDROXIDE SUSP 30 ML UDCUP PO PRN (13:25)
[2016-06-18] MEDS ORDERED: DIPHENHYDRAMINE HCL 25 MG CAPSULE PO PRN (13:25)
[2016-06-18] MEDS ORDERED: ACETAMINOPHEN WITH CODEINE #3 TABLET PO PRN ×2 (13:25)
[2016-06-18] MEDS ORDERED: ZOLPIDEM TARTRATE 5 MG TABLET PO PRN (13:25)
[2016-06-18] MEDS ORDERED: PROMETHAZINE HCL 25 MG TABLET PO PRN (13:25)
[2016-06-18] MEDS ORDERED: PROMETHAZINE HCL 25 MG SUPP.RECT PR PRN (13:25)
[2016-06-18] MEDS ORDERED: PSEUDOEPHEDRINE HCL 30 MG TABLET PO PRN (13:25)
[2016-06-18] MEDS ORDERED: GLYCERIN/WITCH HAZEL LEAF 1 EACH MED..PAD TP PRN (13:25)
[2016-06-18] MEDS ORDERED: BENZOCAINE/MENTHOL AEROSOL SPRAY 56 ML TOP PRN (13:25)
[2016-06-18] MEDS ORDERED: DIBUCAINE 1% OINTMENT 28 GM TP PRN (13:25)
[2016-06-18] MEDS ORDERED: OXYTOCIN/NORMAL SALINE 1,000 ML IV PRN (13:25)
[2016-06-18] MEDS ORDERED: ACETAMINOPHEN 650 MG SUPP.RECT PR PRN (13:25)
[2016-06-18] MEDS ORDERED: NA PHOS,M-B/NA PHOS,DI-BA (ADULT) 133 ML ENEMA PR PRN (13:25)
--- NOTE | 2016-06-18 14:20 | Delivery Summary ---
Del Sum A-C Datetime Report Generated by CPN: 06/18/2016 14:19 DELIVERY PERSONNEL DELIVERY PERSONNEL: [phone] Delivery Doctor:: Krystin Hester MD Anesthesiologist:: Herbie Cartwright MD Labor and Delivery Nurse:: Reyna Soliz RNproduction utility worker Nurse:: Anu Flores RN Nursery Nurse:: Loreta Encinas RN Student Observers:: Mendy Engel Glueline Worker/CASH REGISTER BALANCER: ST Nicole Additional Personnel: : Paula Cuba RN MATERNAL INFORMATION Delivery Anesthesia: Epidural Medications After Delivery: Pitocin Bolus-Please Comment; Other-Please Comment Meds After Delivery Comment: 20 units Pitocin in 1 L NS bolusing per order, Cytotec 1000mcg MD Estimated Blood Loss (ml): 300 Maternal Complications: None Provider Comments: VFI delivered in GLORIA presentation. No nuchal cord. Shoulders and body delivered w/o difficulty. Double foot cord noted and reduced. Placenta delivered intact spontaneously. FF at U and Cytotec 1000mcg placed. Good hemostasis. Good hemostasis post repair. Apgars 9/9. Weight pending. Mother and baby stable upon provider leaving the room. Meconium stained amniotic fluid noted. LABOR SUMMARY EDC: 06/23/2016 00:00 No. Babies in Womb: 1 Attempted: No Labor Anesthesia: None LABOR INFORMATION Reason for Induction: Not Applicable Onset of Labor: 06/18/2016 07:30 Complete Dilatation: 06/18/2016 12:26 Oxytocin: N/A Group B Beta Strep: Negative Antibiotics # of Doses: 0 Antibiotics Time of Last Dose: n/a Name of Antibiotic Given: n/a Steroids Given: None Reason Steroids Not Administered: Not Applicable MEMBRANES Membranes Rupture Method: Spontaneous Rupture of Membranes: 06/18/2016 07:30 Length of Rupture (hr): 5.40 Amniotic Fluid Color: Moderate Meconium Amniotic Fluid Amount: Small Amniotic Fluid Odor: Normal STAGES OF LABOR Stage 1 hr: 4 Stage 1 min: 56 Stage 2 hr: 0 Stage 2 min: 28 Stage 3 hr: 0 Stage 3 min: 6 Total Time in Labor hr: 5 Total Time in Labor min: 30 VAGINAL DELIVERY Episiotomy: None Laceration Extension: First Degree Other Laceration: Left labial Laceration Repair: Yes Laceration Repair Note: First Degree ML laceration and Left labial laceration repaired in the usual fashion. Sponge Count Correct: Yes; Vaginal Sweep Performed Sharps Count Correct: Yes CSECTION DELIVERY Primary Indication: N/A Secondary Indication: N/A CSection Incidence: N/A Labor: N/A Elective: N/A CSection Incision: N/A BABY A INFORMATION Infant Delivery Date/Time: 06/18/2016 12:54 Method of Delivery: Vaginal Born in Route : No : N/A Forceps: N/A Vacuum Extraction: N/A Shoulder Dystocia : No PRESENTATION/POSITION BABY A Presentation: Cephalic Cephalic Presentation: Vertex Vertex Position: Left Occipital Anterior Breech Presentation: N/A PLACENTA INFORMATION BABY A Placenta Delivery Time : 06/18/2016 13:00 Placenta Method of Delivery: Spontaneous Placenta Status: Delivered SCORES BABY A Heart Rate 1 min: >100 bpm Resp Effort 1 min: Good Cry Reflex Irritability 1 min: Cough or Sneeze or Pulls Away Muscle Tone 1 min: Active Motion Color 1 min: Body [place], Extremities Blue Resuscitation Effort 1 min: Tactile Stimulation SCORE 1 MIN: 9 Heart Rate 5 min: >100 bpm Resp Effort 5 min: Good Cry Reflex Irritability 5 min: Cough or Sneeze or Pulls Away Muscle Tone 5 min: Active Motion Color 5 min: Body [place], Extremities Blue Resuscitation Effort 5 min: Tactile Stimulation SCORE 5 MIN: 9 INFANT INFORMATION BABY A Gestational Age at Delivery: 39.2 Gestational Status: Full Term- 39- 40.6 Weeks Infant Outcome : Liveborn Condition : Stable Infant Sex: Female IDENTIFICATION BABY A ID Band Number: [id number] Mother's Name Verified: Yes Infant RN Verifying : A. Rosa Elena RN/ M. Mark RN WEIGHT/LENGTH BABY A Infant Birthweight (gm): 3090 Infant Weight (lb): 6 Infant Weight (oz): 13 Length (in): 20.00 Infant Length (cm): 50.80 CORD INFORMATION BABY A No. Cord Vessels: 3 Nuchal Cord : double foot cord Cord Blood Taken: Yes-For Storage (Mom's Blood type +) Infant Suction: Mouth; Nose ASSESSMENT BABY A Infant Complications: Meconium Physical Findings at Delivery: Within Normal Limits Infant Respirations: Appears Normal Skin to Skin: Yes Skin to Skin Time (min): 60 Zipper Lining Folder/ALS Called : No Infant Care By: Brandi Encinas RN Transferred To: Remains with Mother BABY B INFORMATION : N/A SIGNATURES Signature: with User ID: [email or web address]
[2016-06-18] MEDS: IBUPROFEN 800 MG TABLET PO SCH ×2 (17:19→22:14)
[2016-06-18] MEDS: DOCUSATE SODIUM 100 MG CAPSULE PO SCH (17:22)
[2016-06-18] MEDS: FERROUS SULFATE 325 MG TABLET PO SCH (17:22)
[2016-06-18] MEDS: FAMOTIDINE 20 MG TABLET PO SCH (22:14)
[2016-06-19] MEDS: IBUPROFEN 800 MG TABLET PO SCH ×3 (05:41→22:11)
[2016-06-19 07:01] LABS: HEMATOCRIT 36.5 % (36.0-47.0); HEMOGLOBIN 12.5 g/dL (12.0-15.5); MEAN CORPUSCULAR HEMOGLOBIN 31.4 pg (27.0-33.4); MEAN CORPUSCULAR HGB CONC 34.3 g/dL (32.0-36.0); MEAN CORPUSCULAR VOLUME 92 fl (80-97); RED BLOOD COUNT 3.99 10^6/uL (3.72-5.28); RED CELL DISTRIBUTION WIDTH 14.2 % (11.5-14.0); WHITE BLOOD COUNT 12.5 10^3/uL (4.0-10.5)
[2016-06-19] MEDS: FERROUS SULFATE 325 MG TABLET PO SCH ×2 (09:33→17:16)
[2016-06-19] MEDS: DOCUSATE SODIUM 100 MG CAPSULE PO SCH ×2 (09:33→17:16)
[2016-06-19] MEDS: FAMOTIDINE 20 MG TABLET PO SCH ×2 (09:33→22:11)
[2016-06-19] MEDS: PRENATAL VITAMIN W-O CA NO5/FE FUMARATE/FA CAPSULE PO SCH (09:33)
[2016-06-19] MEDS: SENNOSIDES/DOCUSATE 8.6-50 MG 1 EACH TABLET PO SCH (09:33)
[2016-06-19] MEDS ORDERED: BUPRENORPHINE HCL SL SCH (10:00)
--- NOTE | 2016-06-19 11:20 | PDOC PROGRESS REPORT ---
Subjective-OB Subjective: Post Delivery Day: 26 year old. Denies any needs at this time. Pt doing well, no concerns. She reports light bleeding, regular diet and voiding well. Physical Exam (OB) Vital Signs: Temp Pulse Resp BP Pulse Ox 98.3 F 63 16 115/64 93 06/19/16 07:32 06/19/16 07:32 06/19/16 07:32 06/19/16 07:32 06/19/16 07:32 Intake & Output 06/18/16 06/19/16 06/20/16 06:59 06:59 06:59 Intake Total 400 Balance 400 Weight 75.9 kg - Lochia Lochia Amount: Scant < 10 ml Lochia Color: Rubra/Red - Abdomen Description: Tender, Soft Hernia Present: No Fundal Description: Firm, Midline Fundal Height: u/u - u/2 Objective-Diagnostic Laboratory: 06/19/16 06:50 06/18/16 06/18/16 06/19/16 11:00 11:00 06:50 WBC 18.4 H 12.5 H RBC 4.28 3.99 Hgb 13.5 12.5 Hct 38.8 36.5 MCV 91 92 MCH 31.5 31.4 MCHC 34.8 34.3 RDW 13.9 14.2 H Plt Count 199 186 Seg Neutrophils % Not Reportable Lymphocytes % Not Reportable Monocytes % Not Reportable Eosinophils % Not Reportable Basophils % Not Reportable Absolute Neutrophils Not Reportable Absolute Lymphocytes Not Reportable Absolute Monocytes Not Reportable Absolute Eosinophils Not Reportable Absolute Basophils Not Reportable Blood Type A POSITIVE Antibody Screen NEGATIVE Assessment and Plan(PN) - Assessment and Plan (1) Vaginal delivery Is this a current diagnosis for this admission?: Yes - Time Spent with Patient Time with patient: Less than 15 minutes Medications reviewed and adjusted accordingly: Yes - Disposition Anticipated Discharge: Home Within: within 24 hours
[2016-06-20] MEDS: IBUPROFEN 800 MG TABLET PO SCH (06:00)
[2016-06-20 08:25] VITALS: BP 117/73
[2016-06-20] MEDS: DOCUSATE SODIUM 100 MG CAPSULE PO SCH (09:04)
[2016-06-20] MEDS: PRENATAL VITAMIN W-O CA NO5/FE FUMARATE/FA CAPSULE PO SCH (09:04)
[2016-06-20] MEDS: FERROUS SULFATE 325 MG TABLET PO SCH (09:05)
[2016-06-20] MEDS: SENNOSIDES/DOCUSATE 8.6-50 MG 1 EACH TABLET PO SCH (09:05)
[2016-06-20] MEDS: FAMOTIDINE 20 MG TABLET PO SCH (09:05)
[2016-06-20] MEDS ORDERED: BUPRENORPHINE HCL SL ONE (11:00)
--- NOTE | 2016-06-20 11:07 | PDOC DISCHARGE SUMMARY ---
Final Diagnosis Discharge Date: 06/20/16 - Final Diagnosis (1) Vaginal delivery Is this a current diagnosis for this admission?: Yes Discharge Data - Discharge Medication Home Medications: Buprenorphine HCl [Subutex 8 mg Sublingual Tablet] 3.5 tab SL DAILY 06/02/16 No.40/Iron/FA/Dha [ Multi-Dha Softgel] 1 cap PO DAILY 06/02/16 Ibuprofen [Motrin 800 mg Tablet] 800 mg PO Q8 #60 tablet 06/20/16 Reason(s) for Admission: Onset of Labor Procedures: NST Intrapartum Procedure(s): Spontaneous Vaginal Delivery Complication(s): Laceration-Labial Laceration-Degree: 1st - Diagnosis Test Laboratory: Temp Pulse Resp BP Pulse Ox 98.3 F 63 16 115/64 93 06/19/16 07:32 06/19/16 07:32 06/19/16 07:32 06/19/16 07:32 06/19/16 07:32 06/18/16 06/18/16 06/19/16 09:46 11:00 06:50 RBC 4.28 3.99 Hgb 13.5 12.5 Hct 38.8 36.5 Urine Opiates Screen NEGATIVE - Discharge information/Instructions Discharge Activity: Balance Activity w/Rest, Pelvic Rest Discharge Diet: Regular Disposition: HOME, SELF-CARE Follow up with: [facility] in: 4, Weeks
--- NOTE | 2016-06-20 23:40 | Admission Physical ---
Datetime Report Generated by CPN: 06/20/2016 23:40 CURRENT ADMISSION Chief Complaint: Uterine Contractions; Suspected Ruptured Membranes; Vaginal Bleeding Admit Plan: Admit to Unit; Initiate Labor Protocol ALLERGIES Medication Allergies: Yes Medication Allergies: Penicillins (06/02/2016) Medication Allergies: Penicillins (07/04/2011) Latex: No Latex Allergies Food Allergies: None Environmental Allergies: None OBSTETRICAL HISTORY EDC: 06/23/2016 00:00 : 2 Para: 0 Term: 0 : 0 SAB: 1 IAB: 0 Ectopic: 0 Livin Cesareans: 0 VBACs: 0 Multiple Births: 0 Gestational Diabetes: No Rh Sensitization: No Incompetent Cervix: No ANN MARIE: No Infertility: No ART Treatment: No Uterine Anomaly: No IUGR: No Hx Previous C/S: No Macrosomia: No Hx Loss/Stillborn: No PIH: No Hx : No Placenta Previa/Abruption: No Depression/PP Depression: No PTL/PROM: No Post Hemorrhage: No Current Procedures: Ultrasound; NST Obstetrical History Comments: G1 - SAB at 6 wks (2008) G2 - current - on subutex SEE RECORDS Alcohol: No Marijuana : No Cocaine: No Other Illicit Drugs: No Cigarettes: Current Everyday Smoker. [id number] Cigarette Frequency: 5 - 10 per day Advised to Stop: Yes MEDICAL HISTORY Diabetes: No Blood Transfusion: No Pulmonary Disease (Asthma, TB): No Breast Disease: No Hypertension: No Custom Seamstress Surgery: No Heart Disease: No Hosp/Surgery: No Autoimmune Disorder: No Anesthetic Complications: No Kidney Disease: No Abnormal Pap Smear: No Neuro/Epilepsy: No Psychiatric Disorders: No Other Medical Diseases: No Hepatitis/Liver Disease: No Significant Family History: No Varicosities/Phlebitis: No Trauma/Violence : No Thyroid Dysfunction: No INFECTIOUS HISTORY Gonorrhea: No Genital Herpes: No Chlamydia: No Tuberculosis: No Syphilis: No Hepatitis: No HIV/AIDS Exposure: No Rash or Viral Illness: No HPV: No PHYSICAL EXAM General: Normal HEENT: Normal Neurologic: Normal Thyroid: Normal Heart: Normal Lungs: Normal Breast: Deferred Back: Normal Abdomen: Normal Genitourinary Exam: Normal Extremities: Normal DTRs: Normal Pelvic Type: Adequate Vital Signs: Reviewed VAGINAL EXAM Dilatation: 5 Effacement: 80 Station: -2 MEMBRANES Membranes: Ruptured Amniotic Fluid Color: Clear FETUS A EGA: 39.2 Monitoring: External US FHR- Baseline: 120 Variability: Moderate 6-25bpm Accelerations: 15X15 Decelerations: None FHR Category: Category I Presentation: Vertex Admit Comment: 26yo at 39+2ega with SROM at 0730 and clear. She was [place] and neg ferning and left AMA at 4cm because she wanted to come here. She arrived in the [place] gown with shoes. Cvx 5cm and + ferning. Grossly rutpured. Pt admitted. Rublam NI. 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 GBS negative. Pelvis adequate for JAZMIN. EFW 7#. CAT I FHR tracing. Anticipate . PLANS FOR LABOR AND DELIVERY Labor and Delivery: None Pain Management: Epidural Feeding Preference: Breast Benefit of Breast Feed Discussed: Yes Circumcision: N/A INFORMED CONSENT Informed Consent Obtained: Vaginal Delivery; Risks, Benefits and Alternatives Discussed Signature: with User ID: [email or web address]
[2016-06-21] MEDS ORDERED: BUPRENORPHINE HCL SL SCH (10:00)
== END 2016-06-20 12:47 | disposition home or self-care (01) | DRG 775 ==
LOC: LC 09:43 → LR 11:06 → 2N 15:58
PROVIDERS: ADMIT Student in an Organized Health Care Education/Training Program; ATTEND Student in an Organized Health Care Education/Training Program
PROC: 10E0XZZ Delivery of Products of Conception, External Approach (ICD-10-PCS; principal; 2016-06-18)
PROC: 0HQ9XZZ Repair Perineum Skin, External Approach (ICD-10-PCS; 2016-06-18)
PROC: 4A1HXCZ Monitoring of Products of Conception, Cardiac Rate, External Approach (ICD-10-PCS; 2016-06-18)
PROC: 3E0234Z Introduction of Serum, Toxoid and Vaccine into Muscle, Percutaneous Approach (ICD-10-PCS; 2016-06-20)
DX: O99.334 Smoking (tobacco) complicating childbirth (principal); F11.20 Opioid dependence, uncomplicated; O70.0 First degree perineal laceration during delivery; O99.324 Drug use complicating childbirth; O77.0 Labor and delivery complicated by meconium in amniotic fluid; F17.210 Nicotine dependence, cigarettes, uncomplicated; O69.2XX0 Labor and delivery complicated by other cord entanglement, with compression, not applicable or unspecified; Z3A.39 39 weeks gestation of pregnancy; Z37.0 Single live birth; Z88.0 Allergy status to penicillin; Z23 Encounter for immunization
CPT/HCPCS: 36415; 80307; 81005; 85025; 85027; 86592; 86850; 86900; 86901; 90707; 94760; J2590; J3490; Q0114

== ENCOUNTER → 2017-01-13 | Outpatient (CLI) | payer MEDICAID ==
--- NOTE | 2017-01-13 16:46 | RADIOLOGY REPORT (SQ) ---
EXAM DESCRIPTION: ACUTE ABDOMEN SERIES COMPLETED DATE/TIME: 01/13/2017 3:48 pm REASON FOR STUDY: K59.00 CONSTIPATION, UNSPECIFIED R10.84 GENERALIZED ABDOMINAL PAIN K59.00 CONSTIP ATION, UNSPECIFIED R10.84 GENERALIZED ABDOMINAL PAIN COMPARISON: None. NUMBER OF VIEWS: Three views. TECHNIQUE: Frontal chest, supine abdomen and upright/decubitus abdomen radiographic images acquired. LIMITATIONS: None. FINDINGS: CHEST: Lungs clear of infiltrates. FREE AIR: None. No abnormal gas collections. BOWEL GAS PATTERN: Nonobstructive pattern. No dilated loops or air fluid levels. CONSTIPATION: mild. CALCIFICATIONS: No suspicious calcifications. HARDWARE: None in the abdomen. SOFT TISSUES: No gross mass or suggestion of organomegaly. BONES: No acute fracture. No worrisome bone lesions. OTHER: No other significant finding. IMPRESSION: NO RADIOGRAPHIC EVIDENCE FOR ACUTE ABDOMINAL DISEASE. Mild CONSTIPATION. TECHNICAL DOCUMENTATION: JOB ID: [id number] [id number]- All Rights Reserved
== END ==
LOC: RAD 15:18
PROVIDERS: ATTEND Family Medicine Geriatric Medicine
DX: K59.00 Constipation, unspecified (principal); R10.84 Generalized abdominal pain
CPT/HCPCS: 74022

== ENCOUNTER → 2017-01-13 | Outpatient (CLI) | payer MEDICAID ==
[2017-01-13 15:04] LABS: ABSOLUTE MONOCYTES (AUTO) 0.3 10^3/uL (0.1-1.4); ABSOLUTE NEUT (AUTO) 2.9 10^3/uL (1.7-8.2); BASOPHILS % (AUTO) 0.8 % (0-2); EOSINOPHILS % (AUTO) 0.5 % (0-6); HEMATOCRIT 40.8 % (36.0-47.0); HEMOGLOBIN 13.8 g/dL (12.0-15.5); HGB HCT DIFFERENCE 0.6; LYMPHOCYTES % (AUTO) 38.3 % (13-45); MEAN CORPUSCULAR HEMOGLOBIN 30.8 pg (27.0-33.4); MEAN CORPUSCULAR HGB CONC 33.8 g/dL (32.0-36.0); MEAN CORPUSCULAR VOLUME 91 fl (80-97); RED BLOOD COUNT 4.47 10^6/uL (3.72-5.28); RED CELL DISTRIBUTION WIDTH 13.4 % (11.5-14.0); SEGMENTED NEUTROPHILS % (AUTO) 54.4 % (42-78); WHITE BLOOD COUNT 5.3 10^3/uL (4.0-10.5)
[2017-01-13 15:35] LABS: ALANINE AMINOTRANSFERASE 22 U/L (9-52); ALBUMIN 4.7 g/dL (3.5-5.0); ALKALINE PHOSPHATASE 56 U/L (38-126); ANION GAP 15 (5-19); ASPARTATE AMINO TRANSFERASE 26 U/L (14-36); BILIRUBIN,DIRECT 0.3 mg/dL (0.0-0.4); BILIRUBIN,TOTAL 0.5 mg/dL (0.2-1.3); BLOOD UREA NITROGEN 12 mg/dL (7-20); CALCIUM 9.7 mg/dL (8.4-10.2); CARBON DIOXIDE 27 mmol/L (22-30); CHLORIDE 102 mmol/L (98-107); CREATININE RESULT 0.87 mg/dL (0.52-1.25); GLUCOSE 77 mg/dL (75-110); POTASSIUM 3.9 mmol/L (3.6-5.0); SODIUM 143.5 mmol/L (137-145); TOTAL PROTEIN 6.7 g/dL (6.3-8.2)
[2017-01-15 12:58] LABS: VITAMIN D 25-HYDROXY 83.4 ng/mL (30.0-100.0)
== END ==
LOC: OD 14:03
PROVIDERS: ATTEND Family Medicine Geriatric Medicine
DX: R19.7 Diarrhea, unspecified (principal); E55.9 Vitamin D deficiency, unspecified; Z79.899 Other long term (current) drug therapy
CPT/HCPCS: 36415; 80053; 82306; 83516; 83986; 84443; 85025; 86256; 87045; 87177; 87205